=== PATIENT | male | born 1965 | race Caucasian/White ===

== ENCOUNTER 2020-03-01 06:20 | Observation (INO) | payer MEDICARE, MEDICAID ==
[2020-02-23 16:30] LABS: BASOPHILS # (AUTO) 0.1 X10'3 (0-0.2); BASOPHILS % (AUTO) 0.6 % (0-1); EOSINOPHILS # (AUTO) 0.3 X10'3 (0-0.9); EOSINOPHILS % (AUTO) 3.3 % (0-6); LYMPHOCYTES # (AUTO) 2.3 X10'3 (1.1-4.8); LYMPHOCYTES % (AUTO) 23.1 % (21-51); MEAN CORPUSCULAR HEMOGLOBIN 28.7 PG (27.0-31.0); MEAN CORPUSCULAR HGB CONC 33.1 g/dL (33.0-36.5); MEAN CORPUSCULAR VOLUME 86.6 FL (78-98); MEAN PLATELET VOLUME 8.6 FL (7.4-10.4); MONOCYTES # (AUTO) 1.2 X10'3 (0-0.9); MONOCYTES % (AUTO) 12.8 % (2-12); NEUTROPHILS # (AUTO) 5.9 X10'3 (1.8-7.7); NEUTROPHILS % (AUTO) 60.2 % (42-75); PRE OP HEMATOCRIT 37.8 % (42.0-52.0); PRE OP HEMOGLOBIN 12.5 g/dL (14.0-17.9); PRE OP PLATELET COUNT 318 X10'3 (140-440); RED BLOOD COUNT 4.36 X10'6 (4.70-6.10); RED CELL DISTRIBUTION WIDTH 14.8 % (11.5-14.5)
[2020-02-23 17:08] LABS: ALBUMIN 3.8 G/DL (3.4-5.0); ALKALINE PHOSPHATASE 77 IU/L (46-116); BLOOD UREA NITROGEN 13 MG/DL (7-18); BUN/CREATININE RATIO 11.7 (5.4-32.0); CHLORIDE 103 MMOL/L (99-107); CREATININE 1.11 MG/DL (0.60-1.10); PRE OP ALT 26 U/L (30-65); PRE OP ANION GAP 7 (8-16); PRE OP AST 18 U/L (10-37); PRE OP BILIRUB, TOTAL 0.4 MG/DL (0.0-1.0); PRE OP POTASSIUM 3.7 MMOL/L (3.4-5.1); PRE OP SODIUM 137 MMOL/L (135-145); TOTAL CARBON DIOXIDE 26.9 MMOL/L (24-32); TOTAL PROTEIN 7.5 G/DL (6.4-8.2); eGFR 69 ML/MIN
[2020-02-23 17:18] LABS: PRE OP GLUCOSE 328 MG/DL (70-104)
[~2020-03-01] VITALS: Ht 177.8 cm; Wt 120.2 kg
[2020-03-01] VITALS (25 sets, daily range): BP systolic 103–144; BP diastolic 56–93
[~2020-03-01 06:20] MED LIST: ASPI-10 PO; ATOR80TA PO; BETA15OI TP; BUPR1PAT TOP; CARV-49 PO; CLON-528 PO; DOCUMENT DATE & TIME OF BETA-BLOCKER PO ONE; DULO-31 PO; EMPA25TA PO; FENO130C14 PO; FURO40TA4 PO; GABA600T13 PO; HYDR-4353 PO; INSU100C10 SQ; INSU100V37 SQ; LEVO200T8 PO; MONT10TA26 PO; NOVLG SQ; OMEP40CA13 PO; SACU1TAB PO; SERT100T10 PO; albuterol 2.5 MG/3 ML nebule NEB ONE; famotidine 20mg tablet PO ONE
[2020-03-01] MEDS: ringers solution, lacted 1,000 ML IV SCH ×3 (06:48→16:21)
[2020-03-01] MEDS ORDERED: cocaine 4% topical solution 4ml bottle ONE (07:05)
[2020-03-01] MEDS ORDERED: LIDOcaine 1% 30ml preserv. free vial ONE (07:06)
[2020-03-01] MEDS ORDERED: oxymetazoline 15 ML nasal spray NS ONE (07:06)
[2020-03-01] MEDS ORDERED: BUPIVAcaine/PF 2.5 mg/ml (0.25%) 30ml vial ONE (07:06)
[2020-03-01] MEDS ORDERED: cefTAZidime 1gm inj ONE (07:06)
[2020-03-01] MEDS ORDERED: methylPREDNISolone acetate 80mg/ml inj**IM only ONE (07:06)
[2020-03-01] MEDS ORDERED: mupirocin 2% ointment 22GM ONE (07:06)
[2020-03-01] MEDS ORDERED: LIDOcaine 1% W/epiNEPHrine 1:100,000 20ml vial ONE (07:15)
[2020-03-01] MEDS: oxymetazoline 15 ML nasal spray NS PRN ×2 (07:28→14:36)
[2020-03-01] MEDS ORDERED: etomidate 2mg/ml inj. ONE (07:56)
[2020-03-01] MEDS ORDERED: rocuronium 10mg/ml inj IV ONE (07:56)
[2020-03-01] MEDS ORDERED: midazolam 2 mg/2 ml injection ONE ×2 (07:56)
[2020-03-01] MEDS ORDERED: fentaNYL/PF 50MCG/1 ML 2ML syringe ONE (07:56)
[2020-03-01] MEDS ORDERED: ringers solution, lacted 1,000 ML IV SCH (08:01)
[2020-03-01] MEDS ORDERED: fentaNYL/PF 50MCG/1 ML 2ML syringe IV PRN ×2 (08:05)
[2020-03-01] MEDS ORDERED: morphine 4 MG/ML inj SYRINge IV PRN (08:05)
[2020-03-01] MEDS ORDERED: morphine 2 MG/ML inj. syringe IV PRN ×3 (08:05→15:00)
[2020-03-01] MEDS ORDERED: ondansetron/PF 4mg/2ml inj IV PRN ×2 (08:05→15:00)
[2020-03-01] MEDS ORDERED: hydrALAZINE 20mg/ml inj. IV PRN (08:05)
[2020-03-01] MEDS ORDERED: enalaprilat dihydrate 2.5mg/2ml vial IV PRN (08:05)
[2020-03-01] MEDS ORDERED: acetaminophen 1000 MG/100ml vial IV ONE (08:07)
[2020-03-01] MEDS ORDERED: sevoflurane 250ml liquid IH ONE (08:07)
[2020-03-01] MEDS ORDERED: labetalol 20mg/4ml (5mg/ml) syringe IV ONE (08:07)
[2020-03-01] MEDS ORDERED: LIDOcaine 1% (10mg/ml) 2ml vial ONE (08:10)
[2020-03-01] MEDS ORDERED: sugammadex 200mg/2ml injection IV ONE (08:48)
[2020-03-01] MEDS ORDERED: ondansetron/PF 4mg/2ml inj ONE (08:54)
[2020-03-01] MEDS ORDERED: hydrALAZINE 20mg/ml inj. IV ONE (09:26)
--- NOTE | 2020-03-01 09:37 | NUR ---
Received from OR via , accompanied by Anesthesiologist DR MARTINEZ and report given by Anesthesiolgist. AWAKENS TO VOICE. VITALS STABLE. SM AMNY OF BLEEDING FROM LT NARES. CARMITA PAIN.
[2020-03-01] MEDS ORDERED: HYDROcodone/acetaminophen 10/325mg tab PO PRN ×2 (10:30→15:00)
--- NOTE | 2020-03-01 11:55 | NUR ---
RECEIVED REPORT FROM JAYDEN ROJAS. AWAITING PATIENT ARRIVAL TO ROOM 344B.
[2020-03-01] MEDS ORDERED: INSULIN LISPRO 15 UNIT SQ SCH (12:00)
--- NOTE | 2020-03-01 12:17 | NUR ---
Report called to receiving nurse. Transferred via BED Belongings . Special Issues communicated to receiving nurse. AWAKE AND ORIENTED. VITALS STABLE. DRESSING CHANGED NEEDED FOR OOZING. STATES PAIN CONTROLED. TO SURGICAL RM 344B AT THIS TIME.
--- NOTE | 2020-03-01 12:40 | NUR ---
Patient in room 344b alert and oriented with no complaints at this time. Nostril sling with gauze intact, 2L O2 with nasal cannula in mouth. Oriented patient to room and call light. Patient reports he falls frequently. Instructed patient use of call light. Call light in place, bed low and locked, x2 side rails up.
[2020-03-01] MEDS ORDERED: BETAMETHASONE TOP PRN (13:35)
[2020-03-01] MEDS ORDERED: PROPYLENE GLYC TOP PRN (13:35)
[2020-03-01] MEDS: (Empagliflozin (Jardiance) 1 TAB) PO SCH (13:40)
[2020-03-01] MEDS: salt irrigation nasal spray 45 ML SPRAY NS PRN ×2 (14:36→16:17)
--- NOTE | 2020-03-01 14:42 | NUR ---
Attempted to review [facility] with patient but patient states he doesn't "remember what all I take" and requested that this RN call his Dolores. Telephone call Keiry at number listed for contact with no answer and unable to leave message as voicemail not set up. Will try again. Addendum: 03/01/20 at 1445 by Bennie Mcclain RN Dr Carlos notified.
[2020-03-01] MEDS ORDERED: acetaminophen 325mg tablet PO PRN (15:00)
[2020-03-01] MEDS ORDERED: magnesium hydroxide 30ml (MOM) UD suspension PO PRN (15:00)
[2020-03-01] MEDS ORDERED: mag hydrox/Alum hydrox/simeth 30ml oral suspension PO PRN (15:00)
[2020-03-01] MEDS ORDERED: magnesium 4gm in 100ml NS 100 ML IV PRN (15:00)
[2020-03-01] MEDS ORDERED: magnesium Cl slow-release 64mg tablet PO PRN (15:00)
[2020-03-01] MEDS ORDERED: potassium CL 10mEq/100ml bag 100 ML IV PRN ×2 (15:00)
[2020-03-01] MEDS ORDERED: diphenhydrAMINE 25mg capsule PO PRN (15:00)
[2020-03-01] MEDS ORDERED: acetaminophen 650mg rectal suppository RC PRN (15:00)
[2020-03-01] MEDS ORDERED: MESSAGE TO PHARMACY PO ONE (15:00)
[2020-03-01] MEDS ORDERED: HYDROcodone/acetaminophen 5mg/325mg tablet PO PRN (15:00)
[2020-03-01] MEDS ORDERED: dextrose ORAL solution 15 GM/59 ML bottle PO PRN ×2 (15:00)
[2020-03-01] MEDS ORDERED: insulin Lispro (HumaLOG) vial - multi-dose SQ SCH (15:00)
[2020-03-01] MEDS ORDERED: dextrose 50%-water 50ml dispensing syringe IV PRN ×2 (15:00)
[2020-03-01] MEDS ORDERED: glucagon, human recombinant 1mg kit SUBCUT PRN (15:00)
[2020-03-01] MEDS ORDERED: bisacodyl 10mg suppository rectal RC PRN (15:00)
[2020-03-01] MEDS ORDERED: potassium Cl 20 mEq SR tablet PO PRN ×2 (15:00)
[2020-03-01] MEDS ORDERED: magnesium 2GM in 50ml NS 50 ML IV PRN (15:00)
[2020-03-01] MEDS: gabapentin 300mg capsule PO SCH ×2 (15:13→23:32)
[2020-03-01] MEDS ORDERED: FLO0.4C PO (16:00)
[2020-03-01] MEDS ORDERED: TEMA30CA5 PO (16:00)
[2020-03-01] MEDS: normal saline 1000ml 1,000 ML IV SCH (16:17)
[2020-03-01] MEDS ORDERED: INSU100V9 SQ (16:45)
--- NOTE | 2020-03-01 18:22 | NUR ---
Problems reprioritized. Patient report given, questions answered & plan of care reviewed with JAYDEN KOLB.
[2020-03-01] MEDS: acetaminophen 325mg tablet PO PRN (18:48)
[2020-03-01] MEDS: K and/or MAG REPLACEMENT MC SCH (20:00)
[2020-03-01] MEDS ORDERED: duloxetine 30mg CAPSULE.DR PO SCH ×2 (20:00→21:00)
[2020-03-01] MEDS ORDERED: clonazePAM 0.5mg tablet PO SCH (20:00)
[2020-03-01] MEDS: carVEDilol 12.5mg tablet PO SCH (20:20)
[2020-03-01] MEDS: sacubitril/valsartan 24mg-26mg tablet PO SCH (20:20)
[2020-03-01] MEDS ORDERED: temazepam 15mg capsule PO SCH (21:00)
[2020-03-01] MEDS ORDERED: temazepam 15mg capsule PO PRN (21:00)
[2020-03-01] MEDS ORDERED: tamsulosin 0.4mg capsule PO SCH (21:00)
[2020-03-01] MEDS ORDERED: insulin glargine (Lantus) pen - multi-dose SQ SCH (21:00)
[2020-03-01] MEDS ORDERED: HumuLIN NPH/Reg 70/30 insulin 10ml vial SUBCUT SCH (21:00)
[2020-03-02 00:03] VITALS: BP 117/79
[2020-03-02] MEDS: normal saline 1000ml 1,000 ML IV SCH ×2 (01:40→10:20)
[2020-03-02 05:05] LABS: BASOPHILS # (AUTO) 0.1 X10'3 (0-0.2); BASOPHILS % (AUTO) 0.7 % (0-1); EOSINOPHILS # (AUTO) 0.2 X10'3 (0-0.9); EOSINOPHILS % (AUTO) 2.3 % (0-6); HEMATOCRIT 37.8 % (42.0-52.0); HEMOGLOBIN 12.3 g/dl (14.0-17.9); LYMPHOCYTES # (AUTO) 2.1 X10'3 (1.1-4.8); LYMPHOCYTES % (AUTO) 22.3 % (21-51); MEAN CORPUSCULAR HEMOGLOBIN 28.4 PG (27.0-31.0); MEAN CORPUSCULAR HGB CONC 32.4 g/dL (33.0-36.5); MEAN CORPUSCULAR VOLUME 87.5 FL (78-98); MEAN PLATELET VOLUME 8.7 FL (7.4-10.4); MONOCYTES # (AUTO) 1.2 X10'3 (0-0.9); MONOCYTES % (AUTO) 12.4 % (2-12); NEUTROPHILS # (AUTO) 5.9 X10'3 (1.8-7.7); NEUTROPHILS % (AUTO) 62.3 % (42-75); PLATELET COUNT 272 X10'3 (140-440); RED BLOOD COUNT 4.32 X10'6 (4.70-6.10); RED CELL DISTRIBUTION WIDTH 14.7 % (11.5-14.5); WHITE BLOOD COUNT 9.4 X10'3 (4.5-11.0)
[2020-03-02 05:26] LABS: ALANINE AMINOTRANSFERASE 19 U/L (12-78); ALBUMIN 3.6 G/DL (3.4-5.0); ALKALINE PHOSPHATASE 43 IU/L (46-116); ANION GAP 6 (8-16); ASPARTATE AMINO TRANSFERASE 15 U/L (10-37); BILIRUBIN,TOTAL 0.6 MG/DL (0.1-1.0); BLOOD UREA NITROGEN 18 MG/DL (7-18); CALCIUM 8.6 MG/DL (8.5-10.1); CHLORIDE 107 MMOL/L (99-107); GLUCOSE 154 MG/DL (70-104); PHOSPHORUS 3.6 MG/DL (2.3-4.5); POTASSIUM 3.9 MMOL/L (3.5-5.1); SODIUM 141 MMOL/L (135-145); TOTAL CARBON DIOXIDE 28.3 MMOL/L (24-32); TOTAL PROTEIN 7.2 G/DL (6.4-8.2); eGFR 88 ML/MIN
[2020-03-02 07:55] VITALS: BP_SYST 112; BP_SYST 136; BP_DIAS 79; BP_DIAS 84
[2020-03-02] MEDS ORDERED: pantoprazole 40mg Tablet.DR PO SCH (08:00)
[2020-03-02] MEDS ORDERED: furosemide 40mg tablet PO SCH (08:00)
[2020-03-02] MEDS ORDERED: fenofibrate 145mg tablet PO SCH (08:00)
[2020-03-02] MEDS ORDERED: atorvastatin 20mg tablet PO SCH (08:00)
[2020-03-02] MEDS: (Empagliflozin (Jardiance) 1 TAB) PO SCH (08:00)
[2020-03-02] MEDS ORDERED: insulin Lispro (HumaLOG) vial - multi-dose SQ SCH (08:00)
[2020-03-02] MEDS ORDERED: sertraline 50mg tablet PO SCH ×2 (08:00)
[2020-03-02] MEDS: K and/or MAG REPLACEMENT MC SCH (08:00)
[2020-03-02] MEDS ORDERED: clonazePAM 0.5mg tablet PO SCH (08:00)
[2020-03-02] MEDS ORDERED: BUPRENORPHINE TOP SCH (08:00)
[2020-03-02] MEDS ORDERED: montelukast 10mg tablet PO SCH (08:00)
[2020-03-02] MEDS ORDERED: levoTHYROXINE 100mcg tablet PO SCH (08:00)
[2020-03-02] MEDS: acetaminophen 325mg tablet PO PRN (08:35)
[2020-03-02] MEDS: gabapentin 300mg capsule PO SCH (08:38)
[2020-03-02] MEDS: carVEDilol 12.5mg tablet PO SCH (08:41)
[2020-03-02] MEDS: sacubitril/valsartan 24mg-26mg tablet PO SCH (08:42)
[2020-03-02 11:33] VITALS: BP 107/55
--- NOTE | 2020-03-02 12:42 | NUR ---
Patient stable and appropriate for discharge home with . IV removed, new prescriptions at bedside, home medications given back to patient. Went over after care from Dr. Nelson regarding nasal rinse, sprays, and ointment. Patient provided with irrigation set up, gauze for mustache bandage. Confirmed with [employer] on what supplies and specific directions patient will need before discharge. All belongings taken from room.
--- NOTE | 2020-03-02 13:06 | NUR ---
DM consult: Pt with A1c 9.0%, down from 10.3% in December 2016 per records. Pt discharged prior to RD being available for bedside visit. Written DM education and RD contact information mailed to patient's address found in EMR. Will remain available. Addendum: 03/02/20 at [address] Amended: Links added.
== END 2020-03-02 12:44 | disposition home or self-care (01) ==
LOC: PAS 06:20 → SUR 3N 12:17 → UNDOADMOB 12:17 → SUR 3N 14:56
PROVIDERS: ADMIT Otolaryngology; ATTEND Otolaryngology
DX: J32.0 Chronic maxillary sinusitis (principal); Z20.828 Contact with and (suspected) exposure to other viral communicable diseases; B33.24 Viral cardiomyopathy; I13.0 Hypertensive heart and chronic kidney disease with heart failure and stage 1 through stage 4 chronic kidney disease, or unspecified chronic kidney disease; E11.22 Type 2 diabetes mellitus with diabetic chronic kidney disease; I50.9 Heart failure, unspecified; N18.9 Chronic kidney disease, unspecified; E03.9 Hypothyroidism, unspecified; K21.9 Gastro-esophageal reflux disease without esophagitis; N40.0 Benign prostatic hyperplasia without lower urinary tract symptoms; G47.00 Insomnia, unspecified; E11.40 Type 2 diabetes mellitus with diabetic neuropathy, unspecified; F41.9 Anxiety disorder, unspecified; E78.5 Hyperlipidemia, unspecified; F32.9 Major depressive disorder, single episode, unspecified; Z87.891 Personal history of nicotine dependence; Z95.810 Presence of automatic (implantable) cardiac defibrillator; Z79.899 Other long term (current) drug therapy; Z88.0 Allergy status to penicillin
CPT/HCPCS: 31240; 31254; 31256; 36415; 70486; 71046; 76380; 80053; 82948; 83036; 83735; 84100; 84443; 85025; 85576; 85610; 85730; 87070; 87075; 87077; 87081; 87186; 87635; 94010; 94640; 94760; 96360; 96361; A6402; C9250; C9399; C9803; G0378; J0131; J0360; J0713; J1040; J1815; J2001; J2250; J2405; J3010; J3490; J7030; J7040; J7120; A4618; A7000

== ENCOUNTER 2022-01-18 13:53 | Emergency (ER) | payer MEDICARE, MEDICAID ==
[~2022-01-18] VITALS: Ht 177.8 cm; Wt 120.0 kg
[~2022-01-18 13:53] MED LIST changes: -ASPI-10 PO; -DOCUMENT DATE & TIME OF BETA-BLOCKER PO ONE; +FLO0.4C PO; -INSU100C10 SQ; -INSU100V37 SQ; +INSU100V9 SQ; +MONT-40 PO; -MONT10TA26 PO; -OMEP40CA13 PO; +OMEP40CA21 PO; +SERT-434 PO; -SERT100T10 PO; +TEMA30CA5 PO; -albuterol 2.5 MG/3 ML nebule NEB ONE; -famotidine 20mg tablet PO ONE
[2022-01-18] MEDS ORDERED: normal saline 1000ml 1,000 ML IV ONE (14:05)
--- NOTE | 2022-01-18 14:26 | NUR ---
Cardio LEAD OXIDE MILL TENDER at bedside, amio to be continued in ED and monitored. patient arrived on amiodarone drip 360mg/200ml
[2022-01-18 14:30] LABS: BASOPHILS % (AUTO) 0.1 % (0-1); EOSINOPHILS # (AUTO) 0.2 X10'3 (0-0.9); EOSINOPHILS % (AUTO) 1.3 % (0-6); HEMATOCRIT 35.7 % (42.0-52.0); HEMOGLOBIN 11.8 g/dl (14.0-17.9); LYMPHOCYTES # (AUTO) 1.3 X10'3 (1.1-4.8); LYMPHOCYTES % (AUTO) 10.1 % (21-51); MEAN CORPUSCULAR HEMOGLOBIN 28.3 PG (27.0-31.0); MEAN CORPUSCULAR HGB CONC 33.1 g/dL (33.0-36.5); MEAN CORPUSCULAR VOLUME 85.4 FL (78-98); MEAN PLATELET VOLUME 8.1 FL (7.4-10.4); MONOCYTES # (AUTO) 1.5 X10'3 (0-0.9); MONOCYTES % (AUTO) 11.4 % (2-12); NEUTROPHILS # (AUTO) 10.2 X10'3 (1.8-7.7); NEUTROPHILS % (AUTO) 77.1 % (42-75); PLATELET COUNT 264 X10'3 (140-440); RED BLOOD COUNT 4.18 X10'6 (4.70-6.10); RED CELL DISTRIBUTION WIDTH 14.7 % (11.5-14.5); WHITE BLOOD COUNT 13.2 X10'3 (4.5-11.0)
--- NOTE | 2022-01-18 14:33 | NUR ---
[facility] to pacemaker. shortly after procedure, showed runs of vtach. [facility] and trasnproted for monitoring. was supposed to be direct admit, but no beds available
[2022-01-18 14:39] LABS: APTT 25 SECONDS (22-32)
[2022-01-18 14:46] LABS: ALANINE AMINOTRANSFERASE 39 U/L (12-78); ALBUMIN 3.7 G/DL (3.4-5.0); ALKALINE PHOSPHATASE 36 IU/L (46-116); ANION GAP 8 (8-16); ASPARTATE AMINO TRANSFERASE 53 U/L (10-37); BILIRUBIN,TOTAL 0.3 MG/DL (0.1-1.0); BLOOD UREA NITROGEN 20 MG/DL (7-18); BUN/CREATININE RATIO 17.5 (5.4-32.0); CALCIUM 8.7 MG/DL (8.5-10.1); CHLORIDE 106 MMOL/L (99-107); CREATININE 1.14 MG/DL (0.60-1.10); GLUCOSE 123 MG/DL (70-104); POTASSIUM 3.8 MMOL/L (3.5-5.1); SODIUM 138 MMOL/L (135-145); TOTAL CARBON DIOXIDE 23.6 MMOL/L (24-32); TOTAL PROTEIN 7.4 G/DL (6.4-8.2); eGFR 66 ML/MIN
[2022-01-18 14:53] LABS: MAGNESIUM 2.1 MG/DL (1.5-2.4)
[2022-01-18 15:07] LABS: CLARITY,URINE CLEAR (Clear); COLOR,URINE YELLOW (Yellow); GLUCOSE, URINE >=1000 mg/dl (Neg); KETONES,URINE TRACE mg/dl (Neg); LEUKOCYTE ESTERASE ,URINE NEGATIVE (Neg); NITRITES, URINE NEGATIVE (Neg); OCCULT BLOOD,URINE NEGATIVE (Neg); PH,URINE 5.5 (4.8-8.0); PROTEIN,URINE NEGATIVE (Neg); UROBILINOGEN,URINE 0.2 E.U/dL (0.2-1.0)
--- NOTE | 2022-01-18 15:09 | NUR ---
per Dr. Bull continue amiodarone infusion for duration of visit until cardio clears
--- NOTE | 2022-01-18 15:10 | NUR ---
pharmacy contacted for asistance in placing order
[2022-01-18 15:12] LABS: UA COLLECTION TYPE CLN CATCH MIDSTREAM
[2022-01-18 15:14] LABS: BACTERIA,URINE FEW /HPF (Neg); RBC,URINE 0-2 /HPF (0-2); SQUAMOUS EPITHELIAL CELL,UR FEW /LPF (FEW); WBC,URINE 0-4 /HPF (0-4)
[2022-01-18] MEDS ORDERED: normal saline 1000ML IV soln IVB ONE (15:25)
[2022-01-18] MEDS: amiodarone/D5 360MG/200ML BAG 200 ML IV SCH ×2 (15:29→17:34)
--- NOTE | 2022-01-18 16:19 | NUR ---
report given to Victorina at [facility], advised of 1 hour ETA for air transport
--- NOTE | 2022-01-18 17:33 | NUR ---
Flight crew arrived for transport of patient to [facility]. new amiodarone drip intiiated
[2022-01-18 17:43] VITALS: BP 134/61
== END 2022-01-18 17:47 | disposition short-term general hospital (02) ==
LOC: ER 13:54
DX: I47.2 Ventricular tachycardia (principal); R77.8 Other specified abnormalities of plasma proteins; Z88.0 Allergy status to penicillin; Z79.899 Other long term (current) drug therapy; Z79.84 Long term (current) use of oral hypoglycemic drugs; Z78.1 Physical restraint status
CPT/HCPCS: 36415; 71045; 80053; 81001; 83735; 83880; 84484; 85025; 85610; 85730; 93005; 96361; 96365; 96366; 99285; J0282; J7030